=== PATIENT | female | born 1965 | race Caucasian/White ===

== ENCOUNTER 2016-03-17 17:32 | Emergency (ER) | payer BC ==
[2016-03-17] MEDS ORDERED: SODIUM CHLORIDE 0.9% 2,000 ML ONE (19:53)
[2016-03-17] MEDS ORDERED: ONDANSETRON 4 MG VIAL ONE ×2 (19:53→21:18)
[2016-03-17] MEDS ORDERED: KETOROLAC 30 MG/ML VIAL ONE (19:53)
[2016-03-17] MEDS ORDERED: DILAUDID 1 MG/ML AMP ONE ×2 (19:53→21:19)
[2016-03-17] MEDS ORDERED: SODIUM CHLORIDE 0.9% 1,000 ML ONE (21:19)
[2016-03-17] MEDS ORDERED: ACETAMINOPHEN 325 MG TAB ONE (21:19)
[2016-03-17] MEDS ORDERED: SODIUM CHLORIDE 0.9% 50 ML IV ONE (22:21)
[2016-03-17] MEDS ORDERED: PROMETHAZINE 25 MG/ML VIAL ONE (22:21)
== END 2016-03-17 23:33 | disposition home or self-care (01) ==
LOC: ER 17:32
DX: K52.9 Noninfective gastroenteritis and colitis, unspecified (principal)
CPT/HCPCS: 74176; 96361; 96365; 96375; 96376